=== PATIENT | male | born 1980 | race Caucasian/White ===

== ENCOUNTER 2016-07-16 05:43 | Emergency (ER) | payer OTHER ==
[~2016-07-16] VITALS: Ht 167.6 cm; Wt 90.7 kg
[~2016-07-16 05:43] MED LIST: ALLEGRA180 MG PO; AMLODIPINE5 MG PO; ASACOL HD800 M1 PO; ASMANEX220 MCG INH; ATIVAN1 MG PO; BENTYL10 MG PO; BUSPAR10 MG PO; KLORVESS,K40 MEQ/30 PO; PERCOCET 325 MG1 TA2 PO; PRAZOSIN PO; PRILOSEC40 M1 PO; SINGULAIR10 M1 PO; TRAMADOL HCL50 MG PO; TRAZODONE50 MG PO; ZOCOR20 MG PO; Zofran4 MG PO; [UNRECOGNIZED DRUG - REMARK]
[2016-07-16 06:37] LABS: BILIRUBIN NEGATIVE (NEGATIVE); BLOOD 3+ (NEGATIVE); CLARITY SL CLOUDY (CLEAR); COLOR YELLOW (YELLOW); GLUCOSE NEGATIVE (NEGATIVE); KETONE NEGATIVE (NEGATIVE); LEUKO ESTERASE NEGATIVE (NEGATIVE); NITRITE NEGATIVE (NEGATIVE); PROTEIN NEGATIVE (NEGATIVE); SPECIFIC GRAVITY 1.015 (1.005-1.030); UROBILINOGEN 0.2 E.U./dl (0.2-1.0)
[2016-07-16 06:53] LABS: BACTERIA TRACE; RBC 41-50 rbc/hpf (0-2); URINE REFLEX COMMENT YES (NO)
[2016-07-16] MEDS ORDERED: NORCO 10-325 T1 EACH PO (09:27)
== END 2016-07-16 09:32 | disposition home or self-care (01) ==
LOC: ED 05:43
PROVIDERS: Emergency Medicine
DX: N20.1 Calculus of ureter (principal); Z87.442 Personal history of urinary calculi; Z79.899 Other long term (current) drug therapy

== ENCOUNTER 2017-09-22 09:16 | Emergency (ER) | payer OTHER ==
[~2017-09-22] VITALS: Wt 88.5 kg
[~2017-09-22 09:16] MED LIST changes: +NORCO 10-325 T1 EACH PO
[2017-09-22 09:44] LABS: BASO % 0.4 % (0.0-1.0); EOS # 0.5 10*3/uL (0.0-0.4); EOS % 6.8 % (1.0-4.0); HEMATOCRIT 48.5 % (42.0-52.0); HEMOGLOBIN 16.6 g/dl (14.0-18.0); LYMPH # 1.9 10*3/uL (1.3-4.4); LYMPH % 27.4 % (27.0-41.0); MEAN CELL VOLUME 84.1 fl (80.0-94.0); MEAN CORPUSCULAR HGB 28.8 pg (27.0-31.0); MEAN CORPUSCULAR HGB CONC 34.2 g/dl (33.0-37.0); MONO # 0.6 10*3/uL (0.1-1.0); MONO % 8.6 % (3.0-9.0); NEUT % 56.4 % (47.0-73.0); PLATELET COUNT AUTOMATED 169 10*3/uL (130-400); RED BLOOD COUNT 5.77 10*6/uL (4.50-5.90); RED CELL DISTRI WIDTH 11.9 % (0-14.5); WHITE BLOOD COUNT 7.1 10*3/uL (4.8-10.8)
[2017-09-22 10:08] LABS: BILIRUBIN NEGATIVE (NEGATIVE); BLOOD NEGATIVE (NEGATIVE); CLARITY CLEAR (CLEAR); COLOR YELLOW (YELLOW); GLUCOSE NEGATIVE (NEGATIVE); KETONE NEGATIVE (NEGATIVE); LEUKO ESTERASE NEGATIVE (NEGATIVE); NITRITE NEGATIVE (NEGATIVE); PH 6.5 (5.0-9.0); UROBILINOGEN 0.2 E.U./dl (0.2-1.0)
[2017-09-22 10:14] LABS: ALBUMIN 4.4 gm/dl (3.1-4.5); ALKALINE PHOSPHATASE 79 U/L (45-117); BUN 17 mg/dl (7-24); CHLORIDE 103 mmol/L (98-107); CREATININE 1.32 mg/dL (0.70-1.30); SGOT/AST 41 IU/L (3-35); SGPT/ALT 41 U/L (12-78); SODIUM 137 mmol/L (136-145); TOTAL PROTEIN 7.6 gm/dL (6.4-8.2)
[2017-09-22 10:15] LABS: POTASSIUM 4.6 mmol/L (3.5-5.1)
[2017-09-22 10:37] LABS: BACTERIA TRACE; MUCOUS 2+
[2017-09-22] MEDS ORDERED: ZOFRAN ODT4 MG SL (11:33)
[2017-09-22] MEDS ORDERED: FLOMAX0.4 MG PO (11:33)
[2017-09-22] MEDS ORDERED: PERCOCET 5-3251 EACH PO (11:33)
== END 2017-09-22 11:40 | disposition home or self-care (01) ==
LOC: ED 09:16
PROVIDERS: Registered Nurse
DX: N20.0 Calculus of kidney (principal); Z79.899 Other long term (current) drug therapy; Z87.442 Personal history of urinary calculi

== ENCOUNTER 2019-03-28 16:05 | Emergency (ER) | payer OTHER ==
[~2019-03-28] VITALS: Ht 167.6 cm; Wt 87.1 kg
[~2019-03-28 16:05] MED LIST changes: +FLOMAX0.4 MG PO; +PERCOCET 5-3251 EACH PO; +ZOFRAN ODT4 MG SL
[2019-03-28] MEDS ORDERED: ZOFRAN4 MG PO (17:44)
[2019-03-28] MEDS ORDERED: PROAIR HFA8.5 GM INH (17:44)
[2019-03-28] MEDS ORDERED: TESSALON PERLE100 M1 PO (17:44)
[2019-03-28] MEDS ORDERED: PREDNISONE20 M1 PO (17:44)
== END 2019-03-28 19:11 | disposition home or self-care (01) ==
LOC: ED 16:05
DX: J40 Bronchitis, not specified as acute or chronic (principal); E78.00 Pure hypercholesterolemia, unspecified; I10 Essential (primary) hypertension; Z79.899 Other long term (current) drug therapy

== ENCOUNTER 2019-06-11 17:01 | Emergency (ER) | payer OTHER ==
[~2019-06-11] VITALS: Ht 167.6 cm; Wt 88.9 kg
[~2019-06-11 17:01] MED LIST changes: +PREDNISONE20 M1 PO; +PROAIR HFA8.5 GM INH; +TESSALON PERLE100 M1 PO; +ZOFRAN4 MG PO
[2019-06-11 17:33] LABS: BASO # 0.1 10*3/uL (0.0-0.1); BASO % 0.6 % (0.0-1.0); EOS # 0.6 10*3/uL (0.0-0.4); EOS % 6.8 % (1.0-4.0); HEMATOCRIT 46.5 % (42.0-52.0); HEMOGLOBIN 15.7 g/dl (14.0-18.0); LYMPH # 2.3 10*3/uL (1.3-4.4); LYMPH % 26.7 % (27.0-41.0); MEAN CELL VOLUME 83.3 fl (80.0-94.0); MEAN CORPUSCULAR HGB 28.1 pg (27.0-31.0); MEAN CORPUSCULAR HGB CONC 33.8 g/dl (33.0-37.0); MEAN PLATELET VOLUME 10.2 fl (9.6-12.3); MONO # 0.8 10*3/uL (0.1-1.0); MONO % 9.6 % (3.0-9.0); NEUT # 4.7 10*3/uL (2.3-7.9); NEUT % 55.8 % (47.0-73.0); PLATELET COUNT AUTOMATED 227 10*3/uL (130-400); RED BLOOD COUNT 5.58 10*6/uL (4.50-5.90); RED CELL DISTRI WIDTH 12.9 % (0-14.5); WHITE BLOOD COUNT 8.4 10*3/uL (4.8-10.8)
[2019-06-11 17:44] LABS: ACT PARTIAL THROMBO TIME 29.6 SECONDS (20.0-32.1); INTERNATIONAL NORM RATIO 0.9 (2.0-3.5)
[2019-06-11 17:50] LABS: ALBUMIN 4.1 gm/dl (3.1-4.5); ALKALINE PHOSPHATASE 123 U/L (45-117); BUN 13 mg/dl (7-24); CHLORIDE 105 mmol/L (98-107); CREATININE 1.16 mg/dL (0.70-1.30); POTASSIUM 3.6 mmol/L (3.5-5.1); SGOT/AST 24 IU/L (3-35); SGPT/ALT 46 U/L (12-78); SODIUM 138 mmol/L (136-145); TOTAL PROTEIN 7.8 gm/dL (6.4-8.2)
[2019-06-11 17:54] LABS: TROPONIN I < 0.015 ng/ml (<0.045)
[2019-06-11] MEDS ORDERED: SEPTDS PO (21:07)
== END 2019-06-11 21:16 | disposition home or self-care (01) ==
LOC: ED 17:01
PROVIDERS: Emergency Medicine
DX: L02.11 Cutaneous abscess of neck (principal); R07.89 Other chest pain; R51 Headache; I10 Essential (primary) hypertension; E78.00 Pure hypercholesterolemia, unspecified; Z79.899 Other long term (current) drug therapy; Z87.442 Personal history of urinary calculi

== ENCOUNTER 2019-08-04 20:46 | Emergency (ER) | payer OTHER ==
[~2019-08-04] VITALS: Ht 167.6 cm; Wt 90.7 kg
[~2019-08-04 20:46] MED LIST changes: +SEPTDS PO
== END 2019-08-05 00:05 | disposition home or self-care (01) ==
LOC: ED 20:46
DX: S63.501A Unspecified sprain of right wrist, initial encounter (principal); I10 Essential (primary) hypertension; E78.00 Pure hypercholesterolemia, unspecified; Z79.899 Other long term (current) drug therapy; Z79.2 Long term (current) use of antibiotics; W19.XXXA Unspecified fall, initial encounter; Y93.89 Activity, other specified; Y92.89 Other specified places as the place of occurrence of the external cause; Y99.8 Other external cause status

== ENCOUNTER 2019-11-25 17:44 | Emergency (ER) | payer OTHER ==
[~2019-11-25] VITALS: Wt 91.6 kg
[2019-11-25] MEDS ORDERED: ROBITUSSIN DM 101 OZ PO (19:22)
[2019-11-25] MEDS ORDERED: AUGMENTIN 875-875 MG PO (19:22)
== END 2019-11-25 19:36 | disposition home or self-care (01) ==
LOC: ED 17:44
DX: J01.90 Acute sinusitis, unspecified (principal); R05 Cough; Z79.899 Other long term (current) drug therapy; Z79.2 Long term (current) use of antibiotics; Z20.828 Contact with and (suspected) exposure to other viral communicable diseases

== ENCOUNTER 2020-04-01 23:44 | Emergency (ER) | payer OTHER ==
[~2020-04-01 23:44] MED LIST changes: +AUGMENTIN 875-875 MG PO; +ROBITUSSIN DM 101 OZ PO
[2020-04-02 00:43] LABS: BASO % 0.3 % (0.0-1.0); EOS # 0.2 10*3/uL (0.0-0.4); HEMATOCRIT 46.5 % (42.0-52.0); LYMPH # 1.2 10*3/uL (1.3-4.4); LYMPH % 31.3 % (27.0-41.0); MEAN CELL VOLUME 83.2 fl (80.0-94.0); MEAN CORPUSCULAR HGB 27.2 pg (27.0-31.0); MEAN CORPUSCULAR HGB CONC 32.7 g/dl (33.0-37.0); MEAN PLATELET VOLUME 10.1 fl (9.6-12.3); MONO # 0.6 10*3/uL (0.1-1.0); MONO % 17.2 % (3.0-9.0); NEUT # 1.7 10*3/uL (2.3-7.9); NEUT % 44.9 % (47.0-73.0); PLATELET COUNT AUTOMATED 164 10*3/uL (130-400); RED BLOOD COUNT 5.59 10*6/uL (4.50-5.90); RED CELL DISTRI WIDTH 11.9 % (0-14.5); WHITE BLOOD COUNT 3.7 10*3/uL (4.8-10.8)
[2020-04-02 01:00] LABS: ALBUMIN 3.8 gm/dl (3.1-4.5); ALKALINE PHOSPHATASE 88 U/L (45-117); BUN 12 mg/dl (7-24); CHLORIDE 103 mmol/L (98-107); CREATININE 1.13 mg/dL (0.70-1.30); POTASSIUM 3.4 mmol/L (3.5-5.1); SGOT/AST 18 IU/L (3-35); SGPT/ALT 37 U/L (12-78); SODIUM 137 mmol/L (136-145); TOTAL PROTEIN 6.6 gm/dL (6.4-8.2)
[2020-04-02] MEDS ORDERED: ZITHROMAX250 MG PO ×2 (01:19)
[2020-04-02] MEDS ORDERED: DECADRON6 M1 PO (01:19)
== END 2020-04-02 01:24 | disposition home or self-care (01) ==
LOC: ED 23:44
PROVIDERS: Internal Medicine
DX: U07.1 COVID-19 (principal); E87.6 Hypokalemia; R10.30 Lower abdominal pain, unspecified; Z79.899 Other long term (current) drug therapy

== ENCOUNTER 2020-04-08 06:32 | Observation (INO) | payer OTHER ==
[~2020-04-08] VITALS: Ht 167.6 cm; Wt 90.4 kg
[2020-04-08] VITALS (7 sets, daily range): BP systolic 112–138; BP diastolic 64–83
[~2020-04-08 06:32] MED LIST changes: +DECADRON6 M1 PO; +ZITHROMAX250 MG PO
[2020-04-08 07:08] LABS: MEAN CELL VOLUME 82.1 fl (80.0-94.0); MEAN CORPUSCULAR HGB 27.9 pg (27.0-31.0); MEAN PLATELET VOLUME 10.3 fl (9.6-12.3); PLATELET COUNT AUTOMATED 193 10*3/uL (130-400); RED BLOOD COUNT 5.85 10*6/uL (4.50-5.90); WHITE BLOOD COUNT 7.6 10*3/uL (4.8-10.8)
[2020-04-08 07:24] LABS: ALBUMIN 3.1 gm/dl (3.1-4.5); ALKALINE PHOSPHATASE 66 U/L (45-117); BUN 20 mg/dl (7-24); CHLORIDE 104 mmol/L (98-107); CREATININE 1.26 mg/dL (0.70-1.30); SGOT/AST 17 IU/L (3-35); SGPT/ALT 32 U/L (12-78); SODIUM 134 mmol/L (136-145); TOTAL PROTEIN 7.3 gm/dL (6.4-8.2)
[2020-04-08 07:27] LABS: TROPONIN I < 0.015 ng/ml (<0.045)
[2020-04-08 07:39] LABS: ATYPICAL LYMPHS 2 % (0-0); TOTAL CELLS COUNTED 100 #CELLS
[2020-04-08 07:40] LABS: PLATELET SUFFICIENCY NORMAL (NORMAL)
[2020-04-08] MEDS ORDERED: FLONASE ALLERG9.9 ML NAS (11:43)
[2020-04-08] MEDS ORDERED: SYMB160 INH (11:43)
[2020-04-09] VITALS: BP 134/80
[2020-04-09 06:48] LABS: BASO % 0.3 % (0.0-1.0); EOS % 0.3 % (1.0-4.0); HEMATOCRIT 44.8 % (42.0-52.0); LYMPH # 1.5 10*3/uL (1.3-4.4); LYMPH % 22.5 % (27.0-41.0); MEAN CELL VOLUME 83.1 fl (80.0-94.0); MEAN CORPUSCULAR HGB 27.6 pg (27.0-31.0); MEAN CORPUSCULAR HGB CONC 33.3 g/dl (33.0-37.0); MEAN PLATELET VOLUME 10.4 fl (9.6-12.3); MONO # 0.9 10*3/uL (0.1-1.0); MONO % 13.4 % (3.0-9.0); NEUT % 60.6 % (47.0-73.0); PLATELET COUNT AUTOMATED 202 10*3/uL (130-400); RED BLOOD COUNT 5.39 10*6/uL (4.50-5.90); RED CELL DISTRI WIDTH 12.3 % (0-14.5); WHITE BLOOD COUNT 6.6 10*3/uL (4.8-10.8)
[2020-04-09 07:10] LABS: ALBUMIN 2.8 gm/dl (3.1-4.5); ALKALINE PHOSPHATASE 60 U/L (45-117); BUN 24 mg/dl (7-24); CHLORIDE 103 mmol/L (98-107); CPK 232 U/L (39-308); CREATININE 1.01 mg/dL (0.70-1.30); LDH 221 U/L (87-241); SGOT/AST 18 IU/L (3-35); SGPT/ALT 31 U/L (12-78); SODIUM 135 mmol/L (136-145); TOTAL PROTEIN 6.7 gm/dL (6.4-8.2)
[2020-04-09 08:00] VITALS: BP 134/72
[2020-04-09 16:00] VITALS: BP 113/65
[2020-04-09 20:00] VITALS: BP 146/83
[2020-04-10] VITALS: BP 139/84
[2020-04-10 06:14] LABS: BASO % 0.2 % (0.0-1.0); EOS % 0.1 % (1.0-4.0); HEMATOCRIT 42.7 % (42.0-52.0); LYMPH # 1.5 10*3/uL (1.3-4.4); LYMPH % 18.3 % (27.0-41.0); MEAN CELL VOLUME 82.4 fl (80.0-94.0); MEAN CORPUSCULAR HGB 27.8 pg (27.0-31.0); MEAN CORPUSCULAR HGB CONC 33.7 g/dl (33.0-37.0); MEAN PLATELET VOLUME 10.7 fl (9.6-12.3); MONO # 0.8 10*3/uL (0.1-1.0); MONO % 9.7 % (3.0-9.0); NEUT # 5.7 10*3/uL (2.3-7.9); PLATELET COUNT AUTOMATED 232 10*3/uL (130-400); RED BLOOD COUNT 5.18 10*6/uL (4.50-5.90); WHITE BLOOD COUNT 8.2 10*3/uL (4.8-10.8)
[2020-04-10 06:35] LABS: ALBUMIN 2.7 gm/dl (3.1-4.5); ALKALINE PHOSPHATASE 87 U/L (45-117); BUN 21 mg/dl (7-24); CHLORIDE 106 mmol/L (98-107); CREATININE 0.93 mg/dL (0.70-1.30); LDH 211 U/L (87-241); POTASSIUM 4.1 mmol/L (3.5-5.1); SGOT/AST 23 IU/L (3-35); SGPT/ALT 46 U/L (12-78); SODIUM 137 mmol/L (136-145); TOTAL PROTEIN 6.6 gm/dL (6.4-8.2)
[2020-04-10 08:00] VITALS: BP 115/70
[2020-04-10 12:00] VITALS: BP 123/74
== END 2020-04-10 14:00 | disposition home or self-care (01) ==
LOC: ED 06:32 → EDHOLD 09:33 → 4E 09:33
PROVIDERS: Internal Medicine; ADMIT Internal Medicine; ATTEND Internal Medicine
DX: U07.1 COVID-19 (principal); J12.82 Pneumonia due to coronavirus disease 2019; R07.89 Other chest pain; A41.9 Sepsis, unspecified organism; R00.0 Tachycardia, unspecified; R06.82 Tachypnea, not elsewhere classified; E87.1 Hypo-osmolality and hyponatremia; R73.9 Hyperglycemia, unspecified; R79.82 Elevated C-reactive protein (CRP); R05 Cough; J45.909 Unspecified asthma, uncomplicated; I10 Essential (primary) hypertension; K51.90 Ulcerative colitis, unspecified, without complications; E78.5 Hyperlipidemia, unspecified; M54.5 Low back pain; G89.29 Other chronic pain; Z98.890 Other specified postprocedural states

== ENCOUNTER 2021-06-27 17:05 | Emergency (ER) | payer OTHER ==
[~2021-06-27] VITALS: Ht 167.6 cm; Wt 90.7 kg
[~2021-06-27 17:05] MED LIST changes: +FLONASE ALLERG9.9 ML NAS; +SYMB160 INH
[2021-06-27] MEDS ORDERED: AUGMENTIN 875-875 MG PO (18:47)
[2021-06-27] MEDS ORDERED: ZOFRAN4 MG PO (21:35)
[2021-06-27] MEDS ORDERED: FLOMAX0.4 MG PO (21:35)
== END 2021-06-27 21:39 | disposition home or self-care (01) ==
LOC: ED 17:05
DX: N20.1 Calculus of ureter (principal); Z20.822 Contact with and (suspected) exposure to COVID-19; J06.9 Acute upper respiratory infection, unspecified; R05.9 Cough, unspecified; Z90.89 Acquired absence of other organs; Z98.890 Other specified postprocedural states; Z79.899 Other long term (current) drug therapy; Z91.030 Bee allergy status

== ENCOUNTER → 2021-08-03 | Outpatient (CLI) | payer OTHER | END | disposition home or self-care (01) | LOC: CT 10:00 | PROVIDERS: ATTEND Urology | DX: N20.0 Calculus of kidney (principal); R19.00 Intra-abdominal and pelvic swelling, mass and lump, unspecified site ==

== ENCOUNTER 2021-10-04 18:23 | Emergency (ER) | payer OTHER ==
[~2021-10-04] VITALS: Ht 167.6 cm; Wt 93.0 kg
[2021-10-04] MEDS ORDERED: SILVADENE,SSD C50 GM T (21:15)
== END 2021-10-04 21:50 | disposition home or self-care (01) ==
LOC: ED 18:23
DX: L55.0 Sunburn of first degree (principal); Z91.030 Bee allergy status; Z79.899 Other long term (current) drug therapy; Z98.890 Other specified postprocedural states

== ENCOUNTER → 2022-01-13 | Outpatient (CLI) | payer OTHER ==
[~2022-01-13] MED LIST changes: +SILVADENE,SSD C50 GM T
== END ==
LOC: MRI 09:16
PROVIDERS: ATTEND Internal Medicine
DX: M47.817 Spondylosis without myelopathy or radiculopathy, lumbosacral region (principal)

== ENCOUNTER 2022-08-10 17:38 | Emergency (ER) | payer OTHER ==
[~2022-08-10] VITALS: Ht 167.6 cm; Wt 90.7 kg
[2022-08-10 19:38] LABS: BILIRUBIN Negative (Negative); BLOOD 1+ (Negative); CLARITY Clear (Clear); COLOR Yellow (Yellow); GLUCOSE Negative (Negative); KETONE Trace (Negative); LEUKO ESTERASE Negative (Negative); NITRITE Negative (Negative); PH 5.5 (4.5-8.0)
[2022-08-10 19:47] LABS: BACTERIA 1+; CALCIUM OXALATE CRYSTALS Trace; MUCOUS 3+
== END 2022-08-10 21:18 | disposition home or self-care (01) ==
LOC: ED 17:38
PROVIDERS: Internal Medicine
DX: N20.0 Calculus of kidney (principal); R11.0 Nausea; I10 Essential (primary) hypertension; E78.00 Pure hypercholesterolemia, unspecified; Z86.16 Personal history of COVID-19; Z91.030 Bee allergy status; Z98.890 Other specified postprocedural states

== ENCOUNTER 2022-11-23 16:32 | Emergency (ER) | payer OTHER ==
[~2022-11-23] VITALS: Ht 167.6 cm; Wt 90.7 kg
[2022-11-23 17:35] LABS: BASO % 0.6 % (0.0-1.0); EOS # 0.5 10*3/uL (0.0-0.4); EOS % 7.8 % (1.0-4.0); HEMATOCRIT 46.7 % (42.0-52.0); LYMPH # 2.1 10*3/uL (1.3-4.4); LYMPH % 31.1 % (27.0-41.0); MEAN CELL VOLUME 83.2 fl (80.0-94.0); MEAN CORPUSCULAR HGB 28.9 pg (27.0-31.0); MEAN CORPUSCULAR HGB CONC 34.7 g/dl (33.0-37.0); MEAN PLATELET VOLUME 10.1 fl (9.6-12.3); MONO # 0.5 10*3/uL (0.1-1.0); MONO % 8.1 % (3.0-9.0); NEUT # 3.5 10*3/uL (2.3-7.9); NEUT % 51.9 % (47.0-73.0); PLATELET COUNT AUTOMATED 220 10*3/uL (130-400); RED BLOOD COUNT 5.61 10*6/uL (4.50-5.90); RED CELL DISTRI WIDTH 11.7 % (0-14.5); WHITE BLOOD COUNT 6.7 10*3/uL (4.8-10.8)
[2022-11-23 17:38] LABS: BILIRUBIN Negative (Negative); BLOOD Negative (Negative); CLARITY Clear (Clear); COLOR Yellow (Yellow); GLUCOSE Negative (Negative); KETONE Negative (Negative); LEUKO ESTERASE Negative (Negative); NITRITE Negative (Negative)
[2022-11-23 17:56] LABS: EPITHELIAL CELLS 0-2; WBC 0-2 wbc/hpf (0-5)
[2022-11-23 18:13] LABS: ALKALINE PHOSPHATASE 92 U/L (46-116); BUN 7 mg/dl (9-23); CHLORIDE 103 mmol/L (98-107); POTASSIUM 3.5 mmol/L (3.4-5.1); SGPT/ALT 33 U/L (10-49); TOTAL PROTEIN 7.2 gm/dL (6.0-8.0)
[2022-11-23] MEDS ORDERED: MELOXICAM15 MG PO (20:42)
== END 2022-11-23 20:57 | disposition home or self-care (01) ==
LOC: ED 16:32
PROVIDERS: Nurse Practitioner
DX: N20.0 Calculus of kidney (principal); R11.0 Nausea; I10 Essential (primary) hypertension; E78.00 Pure hypercholesterolemia, unspecified; Z86.16 Personal history of COVID-19; Z91.030 Bee allergy status; Z98.890 Other specified postprocedural states

== ENCOUNTER 2023-01-15 16:05 | Emergency (ER) | payer OTHER ==
[~2023-01-15] VITALS: Wt 90.7 kg
[~2023-01-15 16:05] MED LIST changes: +MELOXICAM15 MG PO
[2023-01-15] MEDS ORDERED: WELLBUTRIN XL300 MG PO (16:26)
[2023-01-15] MEDS ORDERED: ZOLOFT100 MG PO (16:26)
[2023-01-15] MEDS ORDERED: TESTOSTERO200 MG/11 IM (16:28)
[2023-01-15 17:05] LABS: ALKALINE PHOSPHATASE 103 U/L (46-116); BUN 10 mg/dl (9-23); CHLORIDE 104 mmol/L (98-107); POTASSIUM 3.9 mmol/L (3.4-5.1); SGPT/ALT 36 U/L (5-49); TOTAL PROTEIN 7.1 gm/dL (6.0-8.0)
[2023-01-15 17:31] LABS: BASO % 0.5 % (0.0-1.0); EOS # 0.4 10*3/uL (0.0-0.4); HEMATOCRIT 48.3 % (42.0-52.0); LYMPH # 2.3 10*3/uL (1.3-4.4); MEAN CELL VOLUME 84.4 fl (80.0-94.0); MEAN CORPUSCULAR HGB 29.2 pg (27.0-31.0); MEAN CORPUSCULAR HGB CONC 34.6 g/dl (33.0-37.0); MEAN PLATELET VOLUME 10.3 fl (9.6-12.3); MONO # 0.5 10*3/uL (0.1-1.0); MONO % 7.5 % (3.0-9.0); NEUT # 3.3 10*3/uL (2.3-7.9); NEUT % 50.7 % (47.0-73.0); PLATELET COUNT AUTOMATED 222 10*3/uL (130-400); RED BLOOD COUNT 5.72 10*6/uL (4.50-5.90); RED CELL DISTRI WIDTH 11.7 % (0-14.5); WHITE BLOOD COUNT 6.6 10*3/uL (4.8-10.8)
[2023-01-15] MEDS ORDERED: PHENERGAN25 M3 PO (17:36)
[2023-01-15] MEDS ORDERED: ZANAFLEX4 MG PO (17:36)
[2023-01-15 19:10] LABS: BILIRUBIN Negative (Negative); BLOOD Negative (Negative); CLARITY Clear (Clear); COLOR Yellow (Yellow); GLUCOSE Negative (Negative); KETONE Negative (Negative); LEUKO ESTERASE Negative (Negative); NITRITE Negative (Negative); PH 6.5 (4.5-8.0); UROBILINOGEN 0.2 E.U./dl (0.0-1.0)
[2023-01-15 19:21] LABS: BACTERIA TRACE; EPITHELIAL CELLS 0-2; WBC 0-2 wbc/hpf (0-5)
== END 2023-01-15 19:33 | disposition home or self-care (01) ==
LOC: ED 16:05
PROVIDERS: Emergency Medicine
DX: M54.50 Low back pain, unspecified (principal); R11.2 Nausea with vomiting, unspecified; I10 Essential (primary) hypertension; E78.5 Hyperlipidemia, unspecified; E78.00 Pure hypercholesterolemia, unspecified; Z87.442 Personal history of urinary calculi; Z91.030 Bee allergy status; Z98.890 Other specified postprocedural states

== ENCOUNTER 2023-03-28 16:21 | Emergency (ER) | payer OTHER ==
[~2023-03-28] VITALS: Ht 167.6 cm; Wt 90.7 kg
[~2023-03-28 16:21] MED LIST changes: +PHENERGAN25 M3 PO; +TESTOSTERO200 MG/11 IM; +WELLBUTRIN XL300 MG PO; +ZANAFLEX4 MG PO; +ZOLOFT100 MG PO
[2023-03-28 17:38] LABS: BASO % 0.5 % (0.0-1.0); EOS # 0.5 10*3/uL (0.0-0.4); EOS % 6.9 % (1.0-4.0); LYMPH # 2.2 10*3/uL (1.3-4.4); LYMPH % 34.1 % (27.0-41.0); MEAN CELL VOLUME 83.9 fl (80.0-94.0); MEAN CORPUSCULAR HGB 28.5 pg (27.0-31.0); MEAN PLATELET VOLUME 10.1 fl (9.6-12.3); MONO # 0.4 10*3/uL (0.1-1.0); MONO % 6.6 % (3.0-9.0); NEUT # 3.4 10*3/uL (2.3-7.9); NEUT % 51.6 % (47.0-73.0); PLATELET COUNT AUTOMATED 215 10*3/uL (130-400); RED BLOOD COUNT 5.72 10*6/uL (4.50-5.90); RED CELL DISTRI WIDTH 11.6 % (0-14.5); WHITE BLOOD COUNT 6.5 10*3/uL (4.8-10.8)
[2023-03-28 17:41] LABS: BILIRUBIN Negative (Negative); BLOOD Trace-Lysed (Negative); CLARITY Clear (Clear); COLOR Yellow (Yellow); GLUCOSE Negative (Negative); KETONE Negative (Negative); LEUKO ESTERASE Negative (Negative); NITRITE Negative (Negative); PH 6.5 (4.5-8.0); SPECIFIC GRAVITY 1.015 (1.001-1.030); UROBILINOGEN 0.2 E.U./dl (0.0-1.0)
[2023-03-28 17:52] LABS: MUCOUS 3+
[2023-03-28 17:53] LABS: BACTERIA 1+
[2023-03-28 18:00] LABS: ALKALINE PHOSPHATASE 83 U/L (46-116); BUN 9 mg/dl (9-23); CHLORIDE 105 mmol/L (98-107); LIPASE 33 U/L (12-53); SGPT/ALT 39 U/L (5-49)
[2023-03-28] MEDS ORDERED: PERCOCET 5-3251 EACH PO (18:45)
[2023-03-28] MEDS ORDERED: ONDANSETRON4 MG SL (18:45)
[2023-03-28] MEDS ORDERED: Motrin,Rufen800 MG PO (18:45)
== END 2023-03-28 18:49 | disposition home or self-care (01) ==
LOC: ED 16:21
PROVIDERS: Emergency Medicine
DX: N20.1 Calculus of ureter (principal); I10 Essential (primary) hypertension; E78.00 Pure hypercholesterolemia, unspecified; Z91.030 Bee allergy status; Z98.890 Other specified postprocedural states

== ENCOUNTER 2023-05-03 12:35 | Emergency (ER) | payer OTHER ==
[~2023-05-03] VITALS: Ht 167.6 cm; Wt 90.7 kg
[~2023-05-03 12:35] MED LIST changes: +HYDROCODONE-AC1 EAC1 PO; +Motrin,Rufen800 MG PO; +OMNICEF300 MG PO; +ONDANSETRON4 MG SL
[2023-05-03] MEDS ORDERED: IBUPROFEN 800 MG TAB PO ONE (12:50)
[2023-05-03] MEDS ORDERED: Ondansetron Hydrochloride 4 MG/2 ML VIAL IV ONE (12:50)
[2023-05-03 13:32] LABS: BASO % 0.3 % (0.0-1.0); EOS # 0.1 10*3/uL (0.0-0.4); EOS % 1.1 % (1.0-4.0); HEMATOCRIT 47.9 % (42.0-52.0); LYMPH # 1.1 10*3/uL (1.3-4.4); LYMPH % 10.3 % (27.0-41.0); MEAN CELL VOLUME 85.4 fl (80.0-94.0); MEAN CORPUSCULAR HGB 28.3 pg (27.0-31.0); MEAN CORPUSCULAR HGB CONC 33.2 g/dl (33.0-37.0); MEAN PLATELET VOLUME 10.1 fl (9.6-12.3); MONO % 9.4 % (3.0-9.0); NEUT # 8.3 10*3/uL (2.3-7.9); NEUT % 78.5 % (47.0-73.0); PLATELET COUNT AUTOMATED 179 10*3/uL (130-400); RED BLOOD COUNT 5.61 10*6/uL (4.50-5.90); RED CELL DISTRI WIDTH 12.1 % (0-14.5); WHITE BLOOD COUNT 10.6 10*3/uL (4.8-10.8)
[2023-05-03] MEDS ORDERED: SODIUM CHLORIDE 0.9% 1,000 ML IV SCH (13:45)
[2023-05-03 13:55] LABS: ALKALINE PHOSPHATASE 75 U/L (46-116); BUN 8 mg/dl (9-23); CHLORIDE 105 mmol/L (98-107); POTASSIUM 3.7 mmol/L (3.4-5.1); SGPT/ALT 31 U/L (5-49); TOTAL PROTEIN 7.1 gm/dL (6.0-8.0)
[2023-05-03] MEDS ORDERED: ACETAMINOPHEN 325 MG TAB PO ONE (15:00)
== END 2023-05-03 17:48 | disposition home or self-care (01) ==
LOC: ED 12:35
PROVIDERS: Nurse Practitioner
DX: B34.9 Viral infection, unspecified (principal); Z20.822 Contact with and (suspected) exposure to COVID-19; I10 Essential (primary) hypertension; E78.00 Pure hypercholesterolemia, unspecified; R11.0 Nausea; Z87.442 Personal history of urinary calculi; Z91.030 Bee allergy status; Z98.890 Other specified postprocedural states

== ENCOUNTER 2023-06-17 20:16 | Emergency (ER) | payer OTHER ==
[~2023-06-17] VITALS: Ht 167.6 cm; Wt 90.7 kg
[2023-06-17] MEDS ORDERED: Ketorolac Tromethamine 30 MG/ML VIAL IM ONE (20:40)
[2023-06-17 20:43] LABS: BILIRUBIN Negative (Negative); BLOOD Negative (Negative); CLARITY Clear (Clear); COLOR Yellow (Yellow); GLUCOSE Negative (Negative); KETONE Trace (Negative); LEUKO ESTERASE Negative (Negative); NITRITE Negative (Negative); UROBILINOGEN 0.2 E.U./dl (0.0-1.0)
[2023-06-17 20:48] LABS: BASO # 0.1 10*3/uL (0.0-0.1); BASO % 0.7 % (0.0-1.0); EOS # 0.4 10*3/uL (0.0-0.4); EOS % 6.1 % (1.0-4.0); HEMATOCRIT 47.6 % (42.0-52.0); LYMPH # 2.6 10*3/uL (1.3-4.4); LYMPH % 36.8 % (27.0-41.0); MEAN CELL VOLUME 82.5 fl (80.0-94.0); MEAN CORPUSCULAR HGB 28.1 pg (27.0-31.0); MEAN PLATELET VOLUME 9.8 fl (9.6-12.3); MONO # 0.7 10*3/uL (0.1-1.0); MONO % 10.3 % (3.0-9.0); NEUT # 3.2 10*3/uL (2.3-7.9); NEUT % 45.8 % (47.0-73.0); PLATELET COUNT AUTOMATED 225 10*3/uL (130-400); RED BLOOD COUNT 5.77 10*6/uL (4.50-5.90); RED CELL DISTRI WIDTH 11.8 % (0-14.5); WHITE BLOOD COUNT 6.9 10*3/uL (4.8-10.8)
[2023-06-17 20:54] LABS: MUCOUS 2+
[2023-06-17 20:54] LABS: URINE AMPHETAMINES Negative (1000ng/ml); URINE BARBITURATES Negative (200ng/ml); URINE BENZODIAZEPINES Negative (200ng/ml); URINE CANNABINOIDS (THC) Negative (50ng/ml); URINE COCAINE Negative (300ng/ml); URINE METHADONE Negative (300ng/ml); URINE OPIATES Negative (300ng/ml); URINE PHENCYCLIDINE Negative (25ng/ml)
[2023-06-17 21:03] LABS: ALKALINE PHOSPHATASE 98 U/L (46-116); BUN 8 mg/dl (9-23); CHLORIDE 101 mmol/L (98-107); LIPASE 42 U/L (12-53); POTASSIUM 3.5 mmol/L (3.4-5.1); SGPT/ALT 32 U/L (5-49); TOTAL PROTEIN 7.5 gm/dL (6.0-8.0)
[2023-06-17] MEDS ORDERED: Ondansetron Hydrochloride 4 MG TAB PO ONE (21:55)
== END 2023-06-17 23:49 | disposition home or self-care (01) ==
LOC: ED 20:16
PROVIDERS: Physician Assistant Medical
DX: N20.0 Calculus of kidney (principal); R11.2 Nausea with vomiting, unspecified; I10 Essential (primary) hypertension; E78.00 Pure hypercholesterolemia, unspecified; Z91.030 Bee allergy status; Z98.890 Other specified postprocedural states

== ENCOUNTER 2023-06-27 15:08 | Emergency (ER) | payer OTHER ==
[~2023-06-27] VITALS: Ht 167.6 cm; Wt 90.7 kg
[2023-06-27] MEDS ORDERED: SODIUM CHLORIDE 0.9% 1,000 ML IV ONE (15:10)
[2023-06-27] MEDS ORDERED: Ondansetron Hydrochloride 4 MG/2 ML VIAL IV ONE (15:15)
[2023-06-27 15:35] LABS: BASO % 0.1 % (0.0-1.0); EOS # 0.3 10*3/uL (0.0-0.4); EOS % 3.1 % (1.0-4.0); LYMPH # 0.5 10*3/uL (1.3-4.4); LYMPH % 5.9 % (27.0-41.0); MEAN CELL VOLUME 82.9 fl (80.0-94.0); MEAN CORPUSCULAR HGB 27.8 pg (27.0-31.0); MEAN CORPUSCULAR HGB CONC 33.5 g/dl (33.0-37.0); MEAN PLATELET VOLUME 9.9 fl (9.6-12.3); MONO # 0.5 10*3/uL (0.1-1.0); MONO % 5.8 % (3.0-9.0); NEUT # 7.2 10*3/uL (2.3-7.9); NEUT % 84.9 % (47.0-73.0); PLATELET COUNT AUTOMATED 211 10*3/uL (130-400); RED BLOOD COUNT 6.15 10*6/uL (4.50-5.90); RED CELL DISTRI WIDTH 11.8 % (0-14.5); WHITE BLOOD COUNT 8.5 10*3/uL (4.8-10.8)
[2023-06-27 15:59] LABS: ALKALINE PHOSPHATASE 68 U/L (46-116); BUN 12 mg/dl (9-23); CHLORIDE 104 mmol/L (98-107); LIPASE 38 U/L (12-53); POTASSIUM 3.7 mmol/L (3.4-5.1); SGPT/ALT 29 U/L (5-49)
[2023-06-27] MEDS ORDERED: ONDANSETRON4 MG SL (16:47)
== END 2023-06-27 16:57 | disposition home or self-care (01) ==
LOC: ED 15:08
PROVIDERS: Internal Medicine
DX: K52.9 Noninfective gastroenteritis and colitis, unspecified (principal); R11.2 Nausea with vomiting, unspecified; Z91.030 Bee allergy status; Z79.899 Other long term (current) drug therapy; Z79.2 Long term (current) use of antibiotics; Z98.890 Other specified postprocedural states; Z87.442 Personal history of urinary calculi

== ENCOUNTER 2023-09-01 14:40 | Emergency (ER) | payer OTHER ==
[~2023-09-01] VITALS: Ht 167.6 cm; Wt 90.7 kg
[2023-09-01] MEDS ORDERED: SODIUM CHLORIDE 0.9% 1,000 ML IV ONE (14:55)
[2023-09-01] MEDS ORDERED: NIFEDIPINE30 MG PO (14:56)
[2023-09-01] MEDS ORDERED: ROSUVASTATIN CA40 MG PO (14:57)
[2023-09-01] MEDS ORDERED: HYDROmorphONE Hydrochloride 1 MG/ML SYR IV ONE (15:00)
[2023-09-01] MEDS ORDERED: Ondansetron Hydrochloride 4 MG/2 ML VIAL IV ONE (15:00)
[2023-09-01 15:06] LABS: BASO % 0.4 % (0.0-1.0); EOS # 0.2 10*3/uL (0.0-0.4); EOS % 3.1 % (1.0-4.0); HEMATOCRIT 45.9 % (42.0-52.0); LYMPH # 1.7 10*3/uL (1.3-4.4); LYMPH % 25.8 % (27.0-41.0); MEAN CELL VOLUME 83.6 fl (80.0-94.0); MEAN CORPUSCULAR HGB 28.4 pg (27.0-31.0); MONO # 0.5 10*3/uL (0.1-1.0); NEUT # 4.2 10*3/uL (2.3-7.9); NEUT % 63.3 % (47.0-73.0); PLATELET COUNT AUTOMATED 218 10*3/uL (130-400); RED BLOOD COUNT 5.49 10*6/uL (4.50-5.90); RED CELL DISTRI WIDTH 11.9 % (0-14.5); WHITE BLOOD COUNT 6.7 10*3/uL (4.8-10.8)
[2023-09-01 15:27] LABS: ALKALINE PHOSPHATASE 110 U/L (46-116); BUN 14 mg/dl (9-23); CHLORIDE 102 mmol/L (98-107); LIPASE 33 U/L (12-53); POTASSIUM 4.1 mmol/L (3.4-5.1); SGPT/ALT 41 U/L (5-49); TOTAL PROTEIN 7.1 gm/dL (6.0-8.0)
[2023-09-01 16:42] LABS: BILIRUBIN Negative (Negative); BLOOD Negative (Negative); CLARITY Clear (Clear); COLOR Yellow (Yellow); GLUCOSE Negative (Negative); KETONE Trace (Negative); LEUKO ESTERASE Negative (Negative); NITRITE Negative (Negative); PH 5.5 (4.5-8.0); SPECIFIC GRAVITY 1.025 (1.001-1.030); UROBILINOGEN 0.2 E.U./dl (0.0-1.0)
[2023-09-01 17:14] LABS: BACTERIA 1+; MUCOUS 2+
[2023-09-01] MEDS ORDERED: PERCOCET 5-3251 EACH PO (18:19)
== END 2023-09-01 18:30 | disposition home or self-care (01) ==
LOC: ED 14:40
PROVIDERS: Emergency Medicine
DX: N20.0 Calculus of kidney (principal); I10 Essential (primary) hypertension; E78.00 Pure hypercholesterolemia, unspecified; Z91.030 Bee allergy status; Z98.890 Other specified postprocedural states

== ENCOUNTER → 2023-09-28 | Outpatient (CLI) | payer OTHER ==
[~2023-09-28] MED LIST changes: +DICYCLOMINE HYD10 MG PO; +DULCOLAX STOOL100 M1 PO; +METFORMIN HYDR500 MG PO; +NIFEDIPINE30 MG PO; +POTASSIUM CITR10 MEQ PO; +PRILOSEC20 M1 PO; -PRILOSEC40 M1 PO; +ROSUVASTATIN CA10 MG PO; +ROSUVASTATIN CA40 MG PO; +Technetium Tc 99M Tetrofosmi 0.23 MG KIT IJ SCH; +VIT D3 PO
== END | disposition home or self-care (01) ==
LOC: CARD 00:11
PROVIDERS: ATTEND Internal Medicine Cardiovascular Disease
DX: R94.31 Abnormal electrocardiogram [ECG] [EKG] (principal); I42.8 Other cardiomyopathies; I10 Essential (primary) hypertension; I42.9 Cardiomyopathy, unspecified; E11.9 Type 2 diabetes mellitus without complications; Z79.4 Long term (current) use of insulin

== ENCOUNTER 2023-12-05 22:21 | Emergency (ER) | payer OTHER ==
[~2023-12-05] VITALS: Ht 167.6 cm; Wt 90.7 kg
[~2023-12-05 22:21] MED LIST changes: -Technetium Tc 99M Tetrofosmi 0.23 MG KIT IJ SCH
[2023-12-05 22:48] LABS: BASO % 0.4 % (0.0-1.0); EOS # 0.4 10*3/uL (0.0-0.4); EOS % 5.9 % (1.0-4.0); HEMATOCRIT 44.5 % (42.0-52.0); LYMPH # 2.5 10*3/uL (1.3-4.4); LYMPH % 37.2 % (27.0-41.0); MEAN CELL VOLUME 84.3 fl (80.0-94.0); MEAN CORPUSCULAR HGB CONC 34.4 g/dl (33.0-37.0); MEAN PLATELET VOLUME 10.4 fl (9.6-12.3); MONO # 0.7 10*3/uL (0.1-1.0); MONO % 10.8 % (3.0-9.0); NEUT # 3.1 10*3/uL (2.3-7.9); NEUT % 45.4 % (47.0-73.0); PLATELET COUNT AUTOMATED 184 10*3/uL (130-400); RED BLOOD COUNT 5.28 10*6/uL (4.50-5.90); RED CELL DISTRI WIDTH 11.7 % (0-14.5); WHITE BLOOD COUNT 6.8 10*3/uL (4.8-10.8)
[2023-12-05 23:17] LABS: ALKALINE PHOSPHATASE 119 U/L (46-116); BUN 10 mg/dl (9-23); CHLORIDE 105 mmol/L (98-107); POTASSIUM 3.6 mmol/L (3.4-5.1); SGPT/ALT 36 U/L (5-49); TOTAL PROTEIN 6.9 gm/dL (6.0-8.0)
[2023-12-06] MEDS ORDERED: MEPERIDINE HYDROCHLORIDE 25 MG/1 ML VIAL IM ONE (01:15)
[2023-12-06] MEDS ORDERED: Promethazine Hydrochloride 25 MG/ML VIAL IM ONE (01:15)
== END 2023-12-06 01:22 | disposition home or self-care (01) ==
LOC: ED 22:21
PROVIDERS: Internal Medicine
DX: R07.89 Other chest pain (principal); R00.2 Palpitations; I10 Essential (primary) hypertension; E11.9 Type 2 diabetes mellitus without complications; E78.00 Pure hypercholesterolemia, unspecified; Z87.442 Personal history of urinary calculi; Z91.030 Bee allergy status; Z98.890 Other specified postprocedural states

== ENCOUNTER 2023-12-24 15:05 | Emergency (ER) | payer OTHER ==
[~2023-12-24] VITALS: Ht 167.6 cm; Wt 90.7 kg
== END 2023-12-24 18:00 | disposition home or self-care (01) ==
LOC: ED 15:05
DX: J40 Bronchitis, not specified as acute or chronic (principal); I10 Essential (primary) hypertension; E11.9 Type 2 diabetes mellitus without complications; E78.00 Pure hypercholesterolemia, unspecified; Z87.442 Personal history of urinary calculi; Z91.030 Bee allergy status; Z98.890 Other specified postprocedural states

== ENCOUNTER 2024-03-19 16:37 | Emergency (ER) | payer OTHER ==
[~2024-03-19] VITALS: Ht 167.6 cm; Wt 88.9 kg
[2024-03-19] MEDS ORDERED: SODIUM CHLORIDE 0.9% 1,000 ML IV ONE (19:50)
[2024-03-19 20:08] LABS: BASO % 0.4 % (0.0-1.0); EOS # 0.3 10*3/uL (0.0-0.4); EOS % 4.5 % (1.0-4.0); HEMATOCRIT 48.5 % (42.0-52.0); MEAN CELL VOLUME 84.6 fl (80.0-94.0); MEAN CORPUSCULAR HGB 28.4 pg (27.0-31.0); MEAN CORPUSCULAR HGB CONC 33.6 g/dl (33.0-37.0); MEAN PLATELET VOLUME 10.3 fl (9.6-12.3); MONO # 0.5 10*3/uL (0.1-1.0); MONO % 7.8 % (3.0-9.0); NEUT # 3.7 10*3/uL (2.3-7.9); PLATELET COUNT AUTOMATED 191 10*3/uL (130-400); RED BLOOD COUNT 5.73 10*6/uL (4.50-5.90); RED CELL DISTRI WIDTH 11.8 % (0-14.5); WHITE BLOOD COUNT 6.9 10*3/uL (4.8-10.8)
[2024-03-19 20:10] LABS: BILIRUBIN Negative (Negative); BLOOD Negative (Negative); CLARITY Clear (Clear); COLOR Yellow (Yellow); GLUCOSE 3+ (Negative); KETONE Negative (Negative); LEUKO ESTERASE Negative (Negative); NITRITE Negative (Negative); SPECIFIC GRAVITY >= 1.030 (1.001-1.030); UROBILINOGEN 0.2 E.U./dl (0.0-1.0)
[2024-03-19 20:20] LABS: WBC 0-2 wbc/hpf (0-5)
[2024-03-19 20:26] LABS: BUN 9 mg/dl (9-23); CHLORIDE 103 mmol/L (98-107); POTASSIUM 3.8 mmol/L (3.4-5.1)
== END 2024-03-19 22:02 | disposition home or self-care (01) ==
LOC: ED 16:37
PROVIDERS: Nurse Practitioner Family
DX: I49.3 Ventricular premature depolarization (principal); Z20.822 Contact with and (suspected) exposure to COVID-19; R53.83 Other fatigue; R00.2 Palpitations; E78.5 Hyperlipidemia, unspecified; I10 Essential (primary) hypertension; E87.1 Hypo-osmolality and hyponatremia; E11.65 Type 2 diabetes mellitus with hyperglycemia; E78.00 Pure hypercholesterolemia, unspecified; Z87.442 Personal history of urinary calculi; Z98.890 Other specified postprocedural states